=== PATIENT | male | born 1950 | race Two or more races ===

== ENCOUNTER 2018-11-29 15:22 | Emergency (ER) | payer MEDICARE, OTHER ==
[~2018-11-29] VITALS: Ht 182.9 cm; Wt 71.7 kg
[2018-11-29] MEDS ORDERED: NKM (15:52)
--- NOTE | 2018-11-29 15:52 | NUR ---
ED Nurse Note: Patient in bed 8. is present. PATIENT TOOK ANTIBIOTIC TODAY AND STATES HE FLT LIKE HE WAS EXPERIENCING ALLERGY FACE SWELLING AFTER DOSE. pREVIOUS ALLEGIC REACTION TOAMOXICILLIN. kNOWN ALLERGY TO PENICILLIN.
[2018-11-29] MEDS ORDERED: DiphenhydrAMINE 50mg/ml Inj IVP ONE (16:00)
[2018-11-29 16:18] VITALS: BP 140/71
[2018-11-29 16:26] LABS: BASOPHILS % (AUTO) 0.7 % (0.0-2.0); EOSINOPHILS % (AUTO) 1.4 % (0.0-3.0); HEMATOCRIT 40.8 % (42.0-52.0); HEMOGLOBIN 14.3 G/DL (14.2-18.0); LYMPHOCYTES % (AUTO) 17.3 % (20.0-45.0); MEAN CORPUSCULAR VOLUME 80 FL (80-99); MONOCYTES % (AUTO) 8.3 % (1.0-10.0); NEUTROPHILS % (AUTO) 72.4 % (45.0-75.0); PLATELET COUNT 305 K/UL (150-450); RED CELL DISTRIBUTION WIDTH 9.7 % (11.6-14.8); WHITE BLOOD COUNT 8.5 K/UL (4.8-10.8)
[2018-11-29 16:27] LABS: ANION GAP 6 mmol/L (5-15); BLOOD UREA NITROGEN 16 mg/dL (7-18); CALCIUM 9.1 MG/DL (8.5-10.1); CARBON DIOXIDE 31 MMOL/L (21-32); CHLORIDE 99 MMOL/L (98-107); CREATININE 1.1 MG/DL (0.55-1.30); SODIUM 136 MMOL/L (136-145)
[2018-11-29 16:32] LABS: ALANINE AMINOTRANSFERASE 34 U/L (12-78); ALBUMIN 3.7 G/DL (3.4-5.0); ALBUMIN/GLOBULIN RATIO 0.9 (1.0-2.7); ALKALINE PHOSPHATASE 70 U/L (46-116); ASPARTATE AMINO TRANSFERASE 21 U/L (15-37); BILIRUBIN,TOTAL 0.4 MG/DL (0.2-1.0)
--- NOTE | 2018-11-29 16:32 | NUR ---
ED Nurse Note: Patient states he was prescribed antibiotic by his PCP due to a possibl;e sinus problem. He states he has an intermitttent cough productive - since taking the prescruibed antibbiotic the cough is dry. No audible wheeze. No comnplaints of SOB. Medication given. Patient also took 60mg prednisone as prescrbed by his PCP pre attndance at ER. MD aware. Vitals signs monitored. No complaints of pain.
[2018-11-29 16:34] VITALS: BP 150/64
--- NOTE | 2018-11-29 17:08 | Emergency Room Report ---
History of Present Illness General Chief Complaint: Allergic Reaction Source: Patient Present Illness HPI Patient is a 68-year-old male who presents after increased lip and throat swelling. Patient is been seen by Dr. Flores earlier in the day. He was noted to have some recent sinus infection and was started on Levaquin. He subsequently began having increased lip swelling as well as throat swelling which had onset about 15 minutes after taking the medications. He had been given prednisone [address] Flores. Patient does also take aspirin and has for many years. Denies KARELY inhibitor use. Allergies: Coded Allergies: LEVOFLOXACIN (Verified Allergy, Unknown, 11/29/18) PENICILLINS (Verified Allergy, Unknown, 11/29/18) TRAMADOL (Verified Allergy, Unknown, 11/29/18) Patient History Past Medical History: see triage record Reviewed Nursing Documentation: PMH: Agreed; PSxH: Agreed Nursing Documentation-PMH Past Medical History: No Stated History Review of Systems All Other Systems: negative except mentioned in HPI Physical Exam Vital Signs Date Time Temp Pulse Resp B/P (MAP) Pulse Ox O2 Delivery O2 Flow Rate FiO2 11/29/18 15:48 98.4 98 14 158/79 (105) 100 Room Air Sp02 EP Interpretation: reviewed, normal General Appearance: normal inspection, well appearing, no apparent distress, alert, GCS 15 Head: atraumatic ENT: normal ENT inspection, hearing grossly normal, normal voice, uvula midline - slight uvula swelling Neck: normal inspection, full range of motion, supple, no bony tend Respiratory: normal inspection, lungs clear, normal breath sounds, no respiratory distress, no retraction, no wheezing Cardiovascular #1: regular rate, rhythm, no edema Gastrointestinal: normal inspection, normal bowel sounds, non tender, soft, no guarding, no hernia Genitourinary: no CVA tenderness Musculoskeletal: normal inspection, back normal, normal range of motion Neurologic: normal inspection, alert, oriented x3, responsive, motor rebuilder III-XII nml as tested, speech normal Psychiatric: normal inspection, judgement/insight normal, mood/affect normal Medical Decision Making Diagnostic Impression: Primary Impression: Allergic reaction ER Course Patient presented for throat swelling. Differential diagnosis include was not limited to allergic reaction, angioedema, tonsillitis among others. Patient has a benign exam and does not appear to require any imaging or laboratory testing at this time. Patient was observed in the emergency department. He was noted to have previously been given prednisone. He had gradual improvement in sore throat after IV Benadryl. Patient was noted to have chronic history of chronic hypokalemia. Patient is currently taking potassium. Patient was advised to discontinue Levaquin use. He is advised to take steroids for the next few days. He is advised to return if he had any worsening condition or difficulty with breathing. Is given prescription for EpiPen as well as antihistamines. He is advised to return if worse. He was advised to call 911 if he began having severe difficulty with breathing. Last Vital Signs Date Time Temp Pulse Resp B/P (MAP) Pulse Ox O2 Delivery O2 Flow Rate FiO2 11/29/18 16:34 99.3 91 12 150/64 97 Room Air Status: improved Disposition: HOME, SELF-CARE Condition: Stable Scripts Diphenhydramine Hcl* (BENADRYL*) 25 Mg Capsule 25 MG ORAL Q6H PRN for Itching, #20 CAP Prov: Jaziel Saul MD 11/29/18 Epinephrine (Epipen 2-Valeriano) 0.3 Mg/0.3 Ml Auto.injct 0.3 MG IM ONCE for severe shortness of breath, #1 EA Prov: Jaziel Saul MD 11/29/18 Prednisone* (PREDNISONE*) 20 Mg Tablet 40 MG ORAL DAILY, #8 TAB Prov: Jaziel Saul MD 11/29/18 Referrals: [facility],REFERRING (PCP) Jaziel Saul MD Nov 29, 2018 17:08
[2018-11-29] MEDS ORDERED: PREDNISONE20 MG ORAL (17:48)
[2018-11-29] MEDS ORDERED: EPIPEN 2-P0.3 MG/0.3 IM (17:48)
[2018-11-29] MEDS ORDERED: BENADRYL25 MG ORAL (17:48)
[2018-11-29 18:30] VITALS: BP 150/64
--- NOTE | 2018-11-29 18:30 | NUR ---
ER DISCHARGE NOTE: Patient is cleared to be discharged per ERMD, pt is aox4, on room air, with stable vital signs. pt was given dc and prescription instructions, pt was able to verbalize understanding, pt id band and iv site removed without complications. pt is able to ambulate with steady gait. pt took all belongings.
[2018-11-29 20:18] VITALS: BP 150/64
== END 2018-11-29 18:40 | disposition home or self-care (01) ==
LOC: EMR 15:52
DX: T78.40XA Allergy, unspecified, initial encounter (principal); Z88.1 Allergy status to other antibiotic agents; Z88.0 Allergy status to penicillin; Z88.6 Allergy status to analgesic agent; Z79.82 Long term (current) use of aspirin; X58.XXXA Exposure to other specified factors, initial encounter
CPT/HCPCS: 36415; 80053; 83735; 85025; 96374; 99284; J1200